=== PATIENT | female | born 1975 | race Caucasian/White ===

== ENCOUNTER 2024-05-09 12:34 | Emergency (ER) | payer MEDICARE, MEDICAID ==
[~2024-05-09] VITALS: Ht 172.7 cm; Wt 82.8 kg
[2024-05-09 13:56] VITALS: BP 113/81; PULSE 70; RESP 16; TEMP 98; O2SAT 98
== END 2024-05-09 13:57 | disposition home or self-care (01) ==
LOC: ER 12:35
DX: M79.674 Pain in right toe(s) (principal); Z88.0 Allergy status to penicillin; Z88.5 Allergy status to narcotic agent; Z88.2 Allergy status to sulfonamides; Z91.040 Latex allergy status
CPT/HCPCS: 73630; 99283; L3260